=== PATIENT | male | born 1945 | race Caucasian/White ===

== ENCOUNTER 2016-11-02 05:10 | Emergency (ER) | payer MEDICARE, OTHER ==
--- NOTE | 2016-11-02 06:33 | EDM.PDOC ---
ED HPI GENERAL MEDICAL PROBLEM - General Chief Complaint: Genitourinary Problem Stated Complaint: MEDICAL Time Seen by Provider: 11/02/16 05:40 Source of Information: Reports: Patient History Limitations: Reports: No Limitations - History of Present Illness INITIAL COMMENTS - FREE TEXT/NARRATIVE: This gentleman had a cystoscopy yesterday and was told that there were some calcifications within the urethra or prostate. He was able to void after the cystoscopy but is unable to void today. Pelvic Pain Score (Numeric/FACES): 9 - Related Data Allergies Allergy/AdvReac Type Severity Reaction Status Date / Time tamsulosin [From Flomax] Allergy Pain Verified 11/02/16 05:28 wasp Allergy Anaphylactic Uncoded 11/02/16 05:28 Shock Home Meds: Home Meds Albuterol [Proair HFA] 2 puff IH DAILY 11/02/16 [History] Aspirin [Ecotrin] 81 mg PO BID 11/02/16 [History] Escitalopram Oxalate 20 mg PO DAILY 11/02/16 [History] Hydrocortisone [Hydrocortisone] 1 applic TOP DAILY 11/02/16 [History] Ketoconazole [Nizoral 2% Shampoo] 1 applic TOP ASDIRECTED 11/02/16 [History] Multivitamin [Multi-Day Vitamins] 1 each PO DAILY 11/02/16 [History] Nortriptyline HCl [Nortriptyline HCl] 25 mg PO BEDTIME 11/02/16 [History] [place]-3/DHA/Epa/Fish Oil [Fish Oil 1,400 MG Softgel] 1 each PO DAILY 11/02/16 [ History] Primidone [Primidone] 50 mg PO BID 11/02/16 [History] atorvaSTATin Calcium [Atorvastatin Calcium] 40 mg PO DAILY 11/02/16 [History] traZODone HCl [Trazodone HCl] 100 mg PO BEDTIME 11/02/16 [History] Past Medical History HEENT History: Reports: Cataract Cardiovascular History: Reports: High Cholesterol Respiratory History: Reports: COPD, Intubation, Previous, Sleep Apnea Other Respiratory History: c-p with oxygen Gastrointestinal History: Reports: GERD Genitourinary History: Reports: Prostate Disorder, Renal Calculus Musculoskeletal History: Reports: Arthritis, Fracture Neurological History: Reports: Other (See Below) Other Neuro History: tremors. restless leg. brain tumor. headaches Psychiatric History: Reports: Depression Endocrine/Metabolic History: Reports: Obesity/BMI 30+ Oncologic (Cancer) History: Reports: Basal Cell Carcinoma, Bladder, Lung, Prostate, Other (See Below) Other Oncologic History: stomche Dermatologic History: Reports: Seborrheic Dermatitis - Infectious Disease History Infectious Disease History: Reports: Chicken Pox, Measles, Mumps - Past Surgical History HEENT Surgical History: Reports: Cataract Surgery, Naso-Sinus Surgery GI Surgical History: Reports: Colonoscopy, Polypectomy Male Surgical History: Reports: Kidney Stone Extraction, Prostate Biopsy, Renal Calculus, Ureteral Stent Other Male Surgeries/Procedures: prostrate radiation Oncologic Surgical History: Reports: Lobectomy Other Oncologic Surgeries/Procedures: right upper lobe Social & Family History - Tobacco Use Smoking Status *Q: Former Smoker Used Tobacco, but Quit: Yes Month Tobacco Last Used: 1991 - Caffeine Use Caffeine Use: Reports: None - Recreational Drug Use Recreational Drug Use: No ED ROS GENERAL - Review of Systems Review Of Systems: ROS reveals no pertinent complaints other than HPI. ED EXAM, RENAL/ - Physical Exam Exam: See Below Exam Limited By: No Limitations General Appearance: Alert, WD/WN, Mild Distress (Male) Exam: Other (Examination revealed a distended bladder. A urinary catheter had been inserted by the time I saw the patient) Course - Vital Signs Last Recorded V/S: Last Vital Signs Temp 36.8 C 11/02/16 05:21 Pulse 87 11/02/16 05:21 Resp 18 11/02/16 05:21 BP 157/95 H 11/02/16 05:21 Pulse Ox 93 L 11/02/16 05:21 - Orders/Labs/Meds Orders: Active Orders 24 hr Category Date Time Status Soni Catheter Insertion [Insert Urinary Catheter] [OM. Care 11/02/16 05:45 Ordered PC] Q24H Urinary Catheter Assessment [RC] ASDIRECTED Care 11/02/16 05:41 Active Labs: Laboratory Tests 11/02/16 Range/Units 05:43 Urine Color Yellow Urine Appearance Slightly cloudy Urine pH 5.0 (4.5-8.0) Ur Specific [place] 1.020 (1.008-1.030) Urine Protein Negative (NEGATIVE) mg/dL Urine Glucose (UA) 50 H (NEGATIVE) mg/dL Urine Ketones Negative (NEGATIVE) mg/dL Urine Occult Blood Large (NEGATIVE) Urine Nitrite Negative (NEGAITVE) Urine Bilirubin Negative (NEGATIVE) Urine Urobilinogen Normal (NORMAL) mg/dL Ur Leukocyte Esterase Negative (NEGATIVE) Urine RBC 5-10 H (0-5) Urine WBC Not seen (0-5) Ur Epithelial Cells Not seen Amorphous Sediment Not seen Urine Bacteria Few Urine Mucus Few - Re-Assessments/Exams Free Text/Narrative Re-Assessment/Exam: 11/02/16 06:34 Page indwelling Soni catheter was inserted and drained clear yellow urine. This drained 1100 mL of urine Departure - Departure Time of Disposition: 06:30 Disposition: Home, Self-Care 01 Condition: Fair Clinical Impression: Acute urinary retention - Discharge Information Referrals: Jasvir Hahn MD [Primary Care Provider] - Forms: ED Department Discharge Additional Instructions: You're being sent home with a Soni catheter in place area and you will need to see your Dr. day after tomorrow about having the catheter removed. After the catheter is removed you will need to be able to void within a certain amount of time and if you're not able to void then the catheter will have to be reinserted until you see the urologist. It's best if you see your doctor first thing in the morning on Monday. - My Orders Last 24 Hours: My Active Orders 11/02/16 05:41 Urinary Catheter Assessment [RC] ASDIRECTED 11/02/16 05:45 Soni Catheter Insertion [Insert Urinary Catheter] [OM.PC] Q24H - Assessment/Plan Last 24 Hours: My Active Orders 11/02/16 05:41 Urinary Catheter Assessment [RC] ASDIRECTED 11/02/16 05:45 Soni Catheter Insertion [Insert Urinary Catheter] [OM.PC] Q24H
[2016-11-02 06:40] VITALS: BP 164/86
== END 2016-11-02 06:44 | disposition home or self-care (01) ==
LOC: JP.ED 05:10
DX: R33.9 Retention of urine, unspecified (principal); E78.00 Pure hypercholesterolemia, unspecified; J44.9 Chronic obstructive pulmonary disease, unspecified; K21.9 Gastro-esophageal reflux disease without esophagitis; M19.90 Unspecified osteoarthritis, unspecified site; E66.9 Obesity, unspecified; Z85.828 Personal history of other malignant neoplasm of skin; Z98.49 Cataract extraction status, unspecified eye; Z98.890 Other specified postprocedural states; Z87.891 Personal history of nicotine dependence; Z79.899 Other long term (current) drug therapy; Z79.82 Long term (current) use of aspirin; Z88.8 Allergy status to other drugs, medicaments and biological substances; Z91.09 Other allergy status, other than to drugs and biological substances
CPT/HCPCS: 51702; 81001; 99283; 99284-25

== ENCOUNTER 2020-02-17 21:19 | Emergency (ER) | payer MEDICARE, OTHER ==
[2020-02-17] MEDS ORDERED: Acetaminophen 325 MG Tab PO ONE (22:09)
--- NOTE | 2020-02-17 22:09 | EDM.PDOC ---
ED HPI GENERAL MEDICAL PROBLEM - General Chief Complaint: Genitourinary Problem Stated Complaint: TROUBLE URINATING Time Seen by Provider: 02/17/20 21:53 Source of Information: Reports: Patient, Family, RN Notes Reviewed History Limitations: Reports: No Limitations - History of Present Illness INITIAL COMMENTS - FREE TEXT/NARRATIVE: 75-year-old gentleman presents emergency department today with complaint of urinary retention as well as fevers, he does have an AMS system secondary to history of bladder cancer. He states over the last 12 hours he is gotten particularly worse did not have a fever this morning but was chilled does have a fever upon presentation to the emergency department. He also states he gets very short of breath with any exertion at all. Over the last week or so he has noticed a change in his discharge from his AMS system the urinary flow has decreased. Lower Abdominal Pain Score (Numeric/FACES): 7 - Related Data Allergies Allergy/AdvReac Type Severity Reaction Status Date / Time tamsulosin [From Flomax] Allergy Pain Verified 02/17/20 21:35 wasp Allergy Anaphylactic Uncoded 02/17/20 21:35 Shock Home Meds: Home Meds Albuterol [Proair HFA] 2 puff IH DAILY 11/02/16 [History] Aspirin [Ecotrin EC] 81 mg PO BID 11/02/16 [History] Escitalopram Oxalate 20 mg PO DAILY 11/02/16 [History] Hydrocortisone 1 applic TOP DAILY 11/02/16 [History] Ketoconazole [Nizoral 2% Shampoo] 1 applic TOP ASDIRECTED 11/02/16 [History] Multivitamin [Multi-Day Vitamins] 1 each PO DAILY 11/02/16 [History] Nortriptyline HCl 25 mg PO BEDTIME 11/02/16 [History] [place]-3/DHA/Epa/Fish Oil [Fish Oil 1,400 MG Softgel] 1 each PO DAILY 11/02/16 [History] Primidone 50 mg PO BID 11/02/16 [History] atorvaSTATin Calcium [Atorvastatin Calcium] 40 mg PO DAILY 11/02/16 [History] traZODone HCl [Trazodone HCl] 100 mg PO BEDTIME 11/02/16 [History] Past Medical History HEENT History: Reports: Cataract Cardiovascular History: Reports: High Cholesterol Respiratory History: Reports: COPD, Intubation, Previous, Sleep Apnea, SOB Other Respiratory History: c-p with oxygen Gastrointestinal History: Reports: GERD Genitourinary History: Reports: Prostate Disorder, Renal Calculus Musculoskeletal History: Reports: Arthritis, Fracture Neurological History: Reports: Other (See Below) Other Neuro History: tremors. restless leg. brain tumor. headaches Psychiatric History: Reports: Depression Endocrine/Metabolic History: Reports: Obesity/BMI 30+ Oncologic (Cancer) History: Reports: Basal Cell Carcinoma, Bladder, Lung, Prostate, Other (See Below) Other Oncologic History: stomche Dermatologic History: Reports: Seborrheic Dermatitis - Infectious Disease History Infectious Disease History: Reports: Chicken Pox, Measles - Past Surgical History HEENT Surgical History: Reports: Cataract Surgery, Naso-Sinus Surgery GI Surgical History: Reports: Colonoscopy, Polypectomy Male Surgical History: Reports: Kidney Stone Extraction, Prostate Biopsy, Renal Calculus, Ureteral Stent Other Male Surgeries/Procedures: prostrate radiation Oncologic Surgical History: Reports: Lobectomy Other Oncologic Surgeries/Procedures: right upper lobe Social & Family History - Tobacco Use Tobacco Use Status *Q: Former Tobacco User Used Tobacco, but Quit: Yes Month/Year Tobacco Last Used: 1994 - Caffeine Use Caffeine Use: Reports: None - Recreational Drug Use Recreational Drug Use: No ED ROS GENERAL - Review of Systems Review Of Systems: See Below Constitutional: Reports: Fever, Chills, Weakness HEENT: Reports: No Symptoms Respiratory: Reports: Shortness of Breath, Cough Cardiovascular: Reports: Dyspnea on Exertion. Denies: Chest Pain GI/Abdominal: Reports: Abdominal Pain, Flatus. Denies: Nausea, Vomiting : Reports: Urinary Retention Musculoskeletal: Reports: No Symptoms Skin: Reports: No Symptoms ED EXAM, SEPSIS - Physical Exam Exam: See Below Exam Limited By: No Limitations General Appearance: Alert, Mild Distress Respiratory/Chest: Decreased Breath Sounds, Wheezing, Accessory Muscle Use Cardiovascular: Regular Rate, Rhythm, No Murmur GI/Abdominal Exam: Soft, Non-Tender Back: Normal Inspection, Full Range of Motion. No: CVA Tenderness (R), CVA Tenderness (L) Extremities: No Pedal Edema Course - Vital Signs Last Recorded V/S: Last Vital Signs Temp 100.6 F 02/17/20 22:28 Pulse 121 H 02/17/20 23:09 Resp 16 02/17/20 23:09 BP 138/73 02/17/20 23:09 Pulse Ox 93 L 02/17/20 23:09 - Orders/Labs/Meds Orders: Active Orders 24 hr Category Date Time Status Bladder Scan [RC] ASDIRECTED Care 02/17/20 21:22 Active Vital Signs [RC] Q1H Care 02/17/20 22:01 Active Chest 1V Frontal [CR] Routine Exams 02/17/20 22:01 Taken CULTURE BLOOD [BC] Urgent Lab 02/17/20 22:10 Received CULTURE BLOOD [BC] Urgent Lab 02/17/20 22:15 Received CULTURE URINE [RM] Urgent Lab 02/17/20 22:55 Received Lactated Ringers [Ringers, Lactated] 1,000 ml Med 02/17/20 22:15 Active IV ASDIRECTED Piperacillin/Tazobactam [Zosyn] 3.375 gm Med 02/17/20 22:15 Active Sodium Chloride 0.9% [Normal Saline] 50 ml IV Q6H Vancomycin 1 gm Med 02/17/20 23:00 Active Sodium Chloride 0.9% [Normal Saline] 250 ml IV Q12H Blood Culture x2 Reflex Set [OM.PC] Urgent Oth 02/17/20 22:01 Ordered Septic Shock Onset Time [OM.PC] Stat Oth 02/17/20 22:01 Ordered Medication Orders Lactated Ringer's (Ringers, Lactated) 1,000 mls @ 999 mls/hr IV ASDIRECTED [facility] Last Admin: 02/17/20 22:20 Dose: 999 mls/hr Documented by: FARHAN Piperacillin Sod/Tazobactam (Sod 3.375 gm/ Sodium Chloride) 50 mls @ 100 mls/hr IV Q6H [facility] Last Admin: 02/17/20 22:45 Dose: 100 mls/hr Documented by: FARHAN Vancomycin HCl 1 gm/ Sodium (Chloride) 250 mls @ 150 mls/hr IV Q12H [facility] Last Admin: 02/17/20 23:44 Dose: 150 mls/hr Documented by: FARHAN Labs: Laboratory Tests 02/17/20 02/17/20 02/17/20 Range/Units 22:15 22:15 22:15 WBC 17.0 H (4.5-11.0) K/uL RBC 4.60 (4.30-5.90) M/uL Hgb 13.4 (12.0-15.0) g/dL Hct 41.8 (40.0-54.0) % MCV 91 (80-98) fL MCH 29 (27-31) pg MCHC 32 (32-36) % Plt Count 243 (150-400) K/uL Neut % (Auto) 90 H (36-66) % Lymph % (Auto) 4 L (24-44) % [place] % (Auto) 6 (2-6) % Eos % (Auto) 0 L (2-4) % Baso % (Auto) 0 (0-1) % Sodium 133 L (140-148) mmol/L Potassium 4.3 (3.6-5.2) mmol/L Chloride 97 L (100-108) mmol/L Carbon Dioxide 28 (21-32) mmol/L Anion Gap 12.3 (5.0-14.0) mmol/L BUN 19 H (7-18) mg/dL Creatinine 1.2 (0.8-1.3) mg/dL Est Cr Clr Drug Dosing 52.39 mL/min Estimated GFR (MDRD) 59 L (>60) Glucose 165 H (74-106) mg/dL Lactic Acid 3.4 H (0.4-2.0) mmol/L Calcium 9.7 (8.5-10.1) mg/dL Total Bilirubin 0.6 (0.2-1.0) mg/dL AST 33 (15-37) U/L ALT 3 L (12-78) U/L Alkaline Phosphatase 118 H (46-116) U/L Troponin I (0.000-0.056) ng/mL C-Reactive Protein 8.11 H (0.0-0.3) mg/dL Total Protein 7.9 (6.4-8.2) g/dL Albumin 3.4 (3.4-5.0) g/dL Globulin 4.5 H (2.3-3.5) g/dL Albumin/Globulin Ratio 0.8 L (1.2-2.2) Procalcitonin ng/mL Urine Color (YELLOW) Urine Appearance (CLEAR) Urine pH (5.0-8.0) Ur Specific [place] (1.008-1.030) Urine Protein (NEGATIVE) mg/dL Urine Glucose (UA) (NEGATIVE) mg/dL Urine Ketones (NEGATIVE) mg/dL Urine Occult Blood (NEGATIVE) Urine Nitrite (NEGATIVE) Urine Bilirubin (NEGATIVE) Urine Urobilinogen (0.2-1.0) EU/dL Ur Leukocyte Esterase (NEGATIVE) Urine RBC (0-5) Urine WBC (0-5) Ur Epithelial Cells Amorphous Sediment Urine Bacteria Urine Mucus Urine Other SARS-CoV-2 RNA (TABBY) (NEGATIVE) 02/17/20 02/17/20 02/17/20 Range/Units 22:15 22:15 22:33 WBC (4.5-11.0) K/uL RBC (4.30-5.90) M/uL Hgb (12.0-15.0) g/dL Hct (40.0-54.0) % MCV (80-98) fL MCH (27-31) pg MCHC (32-36) % Plt Count (150-400) K/uL Neut % (Auto) (36-66) % Lymph % (Auto) (24-44) % [place] % (Auto) (2-6) % Eos % (Auto) (2-4) % Baso % (Auto) (0-1) % Sodium (140-148) mmol/L Potassium (3.6-5.2) mmol/L Chloride (100-108) mmol/L Carbon Dioxide (21-32) mmol/L Anion Gap (5.0-14.0) mmol/L BUN (7-18) mg/dL Creatinine (0.8-1.3) mg/dL Est Cr Clr Drug Dosing mL/min Estimated GFR (MDRD) (>60) Glucose (74-106) mg/dL Lactic Acid (0.4-2.0) mmol/L Calcium (8.5-10.1) mg/dL Total Bilirubin (0.2-1.0) mg/dL AST (15-37) U/L ALT (12-78) U/L Alkaline Phosphatase (46-116) U/L Troponin I < 0.017 (0.000-0.056) ng/mL C-Reactive Protein (0.0-0.3) mg/dL Total Protein (6.4-8.2) g/dL Albumin (3.4-5.0) g/dL Globulin (2.3-3.5) g/dL Albumin/Globulin Ratio (1.2-2.2) Procalcitonin 2.35 H* ng/mL Urine Color (YELLOW) Urine Appearance (CLEAR) Urine pH (5.0-8.0) Ur Specific [place] (1.008-1.030) Urine Protein (NEGATIVE) mg/dL Urine Glucose (UA) (NEGATIVE) mg/dL Urine Ketones (NEGATIVE) mg/dL Urine Occult Blood (NEGATIVE) Urine Nitrite (NEGATIVE) Urine Bilirubin (NEGATIVE) Urine Urobilinogen (0.2-1.0) EU/dL Ur Leukocyte Esterase (NEGATIVE) Urine RBC (0-5) Urine WBC (0-5) Ur Epithelial Cells Amorphous Sediment Urine Bacteria Urine Mucus Urine Other SARS-CoV-2 RNA (TABBY) Negative (NEGATIVE) 02/17/20 Range/Units 22:55 WBC (4.5-11.0) K/uL RBC (4.30-5.90) M/uL Hgb (12.0-15.0) g/dL Hct (40.0-54.0) % MCV (80-98) fL MCH (27-31) pg MCHC (32-36) % Plt Count (150-400) K/uL Neut % (Auto) (36-66) % Lymph % (Auto) (24-44) % [place] % (Auto) (2-6) % Eos % (Auto) (2-4) % Baso % (Auto) (0-1) % Sodium (140-148) mmol/L Potassium (3.6-5.2) mmol/L Chloride (100-108) mmol/L Carbon Dioxide (21-32) mmol/L Anion Gap (5.0-14.0) mmol/L BUN (7-18) mg/dL Creatinine (0.8-1.3) mg/dL Est Cr Clr Drug Dosing mL/min Estimated GFR (MDRD) (>60) Glucose (74-106) mg/dL Lactic Acid (0.4-2.0) mmol/L Calcium (8.5-10.1) mg/dL Total Bilirubin (0.2-1.0) mg/dL AST (15-37) U/L ALT (12-78) U/L Alkaline Phosphatase (46-116) U/L Troponin I (0.000-0.056) ng/mL C-Reactive Protein (0.0-0.3) mg/dL Total Protein (6.4-8.2) g/dL Albumin (3.4-5.0) g/dL Globulin (2.3-3.5) g/dL Albumin/Globulin Ratio (1.2-2.2) Procalcitonin ng/mL Urine Color Yellow (YELLOW) Urine Appearance Cloudy A (CLEAR) Urine pH 6.0 (5.0-8.0) Ur Specific [place] 1.025 (1.008-1.030) Urine Protein 30 H (NEGATIVE) mg/dL Urine Glucose (UA) Negative (NEGATIVE) mg/dL Urine Ketones Negative (NEGATIVE) mg/dL Urine Occult Blood Moderate H (NEGATIVE) Urine Nitrite Positive H (NEGATIVE) Urine Bilirubin Negative (NEGATIVE) Urine Urobilinogen 1.0 (0.2-1.0) EU/dL Ur Leukocyte Esterase Moderate H (NEGATIVE) Urine RBC 10-20 H (0-5) Urine WBC >100 H (0-5) Ur Epithelial Cells Few Amorphous Sediment Not seen Urine Bacteria Many Urine Mucus Not seen Urine Other SARS-CoV-2 RNA (TABBY) (NEGATIVE) Meds: Medications Generic Name Dose Route Start Last Admin Trade Name Freq PRN Reason Stop Dose Admin Lactated Ringer's 1,000 mls @ 999 mls/hr 02/17/20 22:15 02/17/20 22:20 Ringers, Lactated IV 999 mls/hr ASDIRECTED NABEEL Administration Piperacillin Sod/Tazobactam 50 mls @ 100 mls/hr 02/17/20 22:15 02/17/20 22:45 Sod 3.375 gm/ Sodium Chloride IV 100 mls/hr Q6H NABEEL Administration Vancomycin HCl 1 gm/ Sodium 250 mls @ 150 mls/hr 02/17/20 23:00 02/17/20 23:44 Chloride IV 150 mls/hr Q12H NABEEL Administration Discontinued Medications Generic Name Dose Route Start Last Admin Trade Name Freq PRN Reason Stop Dose Admin Acetaminophen 650 mg 02/17/20 22:09 02/17/20 22:28 Tylenol PO 02/17/20 22:10 650 mg NOW ONE Administration Vancomycin HCl Confirm 02/17/20 23:40 02/17/20 23:50 Vancomycin Administered 02/17/20 23:41 Not Given Dose 1 gm .ROUTE .STK-MED ONE Departure - Departure Time of Disposition: 00:10 Disposition: DC/Tfer to Acute Hospital 02 Condition: Poor Clinical Impression: Sepsis Qualifiers: Sepsis type: sepsis due to unspecified organism Sepsis acute organ dysfunction status: without acute organ dysfunction Qualified Code(s): A41.9 - Sepsis, unspecified organism - Discharge Information Referrals: Max Sherman MD [Primary Care Provider] - Forms: ED Department Discharge Critical Care Note - Critical Care Note Total Time (mins): 20 Sepsis Event Note (ED) - Evaluation Sepsis Screening Result: Possible Sepsis Risk - Focused Exam Vital Signs: Vital Signs Temp Temp Pulse Resp BP Pulse Ox 02/17/20 23:09 121 H 16 138/73 93 L 02/17/20 22:28 100.6 F 02/17/20 22:24 125 H 41 H 147/78 H 92 L 02/17/20 21:50 125 H 21 H 153/78 H 91 L 02/17/20 21:48 100.6 F 134 H 40 H 157/73 H 90 L 02/17/20 21:34 100.6 F 134 H 40 H 157/73 H 90 L - My Orders Last 24 Hours: My Active Orders 02/17/20 21:22 Bladder Scan [RC] ASDIRECTED 02/17/20 22:01 Vital Signs [RC] Q1H Chest 1V Frontal [CR] Routine Blood Culture x2 Reflex Set [OM.PC] Urgent Septic Shock Onset Time [OM.PC] Stat 02/17/20 22:10 CULTURE BLOOD [BC] Urgent 02/17/20 22:15 CULTURE BLOOD [BC] Urgent Lactated Ringers [Ringers, Lactated] 1,000 ml IV ASDIRECTED Piperacillin/Tazobactam [Zosyn] 3.375 gm Sodium Chloride 0.9% [Normal Saline] 50 ml IV Q6H 02/17/20 22:55 CULTURE URINE [RM] Urgent 02/17/20 23:00 Vancomycin 1 gm Sodium Chloride 0.9% [Normal Saline] 250 ml IV Q12H - Assessment/Plan Last 24 Hours: My Active Orders 02/17/20 21:22 Bladder Scan [RC] ASDIRECTED 02/17/20 22:01 Vital Signs [RC] Q1H Chest 1V Frontal [CR] Routine Blood Culture x2 Reflex Set [OM.PC] Urgent Septic Shock Onset Time [OM.PC] Stat 02/17/20 22:10 CULTURE BLOOD [BC] Urgent 02/17/20 22:15 CULTURE BLOOD [BC] Urgent Lactated Ringers [Ringers, Lactated] 1,000 ml IV ASDIRECTED Piperacillin/Tazobactam [Zosyn] 3.375 gm Sodium Chloride 0.9% [Normal Saline] 50 ml IV Q6H 02/17/20 22:55 CULTURE URINE [RM] Urgent 02/17/20 23:00 Vancomycin 1 gm Sodium Chloride 0.9% [Normal Saline] 250 ml IV Q12H Plan: Assessment Acuity = acute Site and laterality = sepsis urinary source Etiology = probable bacterial cause Manifestations = fever, dyspnea Location of injury = Home Lab values = WBC elevated 17.0 consistent leukocytosis sodium low at 133 consistent hyponatremia lactic acid elevated 3.4 consistent lactic acidosis troponin was negative CRP elevated 8.11 procalcitonin elevated 2.35 urinalysis positive for nitrates 10-20 RBCs consistent with hematuria greater than 100 WBCs consistent with pyuria cultures pending Covid was negative chest x-ray I did review films myself I cannot appreciate any acute process, the official read from radiology is pending, blood cultures are pending Plan Called and discussed the case with Dr. Watt emergency room physician [facility] she kindly accepted the patient at 1206, thus far antibiotics Zosyn and vancomycin have been initiated he is received 1 L of fluids will receive another liter fluids of lactated Ringer's in route will be transported via EMS ground This note was dictated using [employer] voice recognition software please call with any questions on syntax or grammar.
[2020-02-17] MEDS ORDERED: Lactated Ringers 1,000 ML IV SCH (22:15)
[2020-02-17] MEDS ORDERED: Piperacillin/Tazobactam 3.375 GM in Sodium Chloride 0.9% 50 ML IV SCH (22:15)
[2020-02-17] MEDS ORDERED: Vancomycin 1 GM SDV ONE (23:40)
[2020-02-18] MEDS ORDERED: Lactated Ringers 1,000 ML IV ONE (00:10)
[2020-02-18 00:33] VITALS: BP 125/59; PULSE 110
--- NOTE | 2020-02-18 09:12 | CR ---
CHEST: Portable 02/17/2020 at 10:59 PM CLINICAL HISTORY:Fever COMPARISON:2012 FINDINGS: Heart size is mildly enlarged. Pulmonary vascularity is normal. There is less than optimal and inspiration. There are some patchy densities in both lung bases which may represent some infiltrate or atelectasis. IMPRESSION: Mild cardiomegaly Respiratory level with patchy bibasal densities. This may represent some infiltrate or subsegmental atelectasis. Upright two-view chest recommended when patient's condition allows
== END 2020-02-18 00:58 ==
LOC: JP.ED 21:19
DX: A41.9 Sepsis, unspecified organism (principal); E78.00 Pure hypercholesterolemia, unspecified; J44.9 Chronic obstructive pulmonary disease, unspecified; E66.9 Obesity, unspecified; Z20.828 Contact with and (suspected) exposure to other viral communicable diseases; Z91.030 Bee allergy status; Z88.8 Allergy status to other drugs, medicaments and biological substances; Z79.82 Long term (current) use of aspirin; Z79.899 Other long term (current) drug therapy; Z87.891 Personal history of nicotine dependence; Z68.37 Body mass index [BMI] 37.0-37.9, adult
CPT/HCPCS: 36415; 71045; 80053; 81001; 83605; 84145; 84484; 85025; 86140; 87040; 87077; 87086; 87088; 87186; 96365; 96367; 99285; A9270; J2543; J3370; J7050; J7120; U0002